=== PATIENT | male | born 1990 | race Hispanic/Latino ===

== ENCOUNTER 2017-07-19 11:03 | Emergency (ER) | payer OTHER ==
[~2017-07-19] VITALS: Ht 182.9 cm; Wt 108.0 kg
[~2017-07-19 11:03] MED LIST: COLACE100 MG PO; ENDOCET 5-3251 EACH PO; PROTEIN NUTRIT414 ML PO
[2017-07-19 12:02] LABS: HEMATOCRIT 44.6 % (38.0-50.0); MCHC 33.2 G/DL (30.0-36.0); MCV 81.4 FL (86-99); MEAN PLAT.VOLUME 10.5 uM^3 (9.0-12.4); PLATELET COUNT 225 K/uL (156-360); RBC DIS.WIDTH-CV 12.3 % (11.8-14.6); RBC DIS.WIDTH-SD 36.5 % (39-53); RED BLOOD COUNT 5.48 M/uL (4.00-5.50); WHITE BLOOD COUNT 9.1 K/uL (4.1-10.2)
[2017-07-19 12:10] LABS: CHLORIDE 105 mEq/L (99-109); POTASSIUM 3.8 mEq/L (3.7-5.4); SODIUM 137 mEq/L (136-147)
[2017-07-19 12:12] LABS: GLUCOSE 86 mg/dL (70-99)
[2017-07-19 12:13] LABS: ANION GAP 9 MEQ/L (2-14)
[2017-07-19 12:16] LABS: GFR ESTIMATE (CALCULATED) > 59 mL/min/
[2017-07-19 12:17] LABS: UREA NITROGEN (BUN) 15 mg/dL (9-23)
[2017-07-19 12:23] LABS: TROP-I INTERPRETATION NEGATIVE; TROPONIN-I < 0.01 ng/mL (0.0-0.30)
[2017-07-19 13:40] VITALS: BP 113/82
== END 2017-07-19 13:41 | disposition home or self-care (01) ==
LOC: EME 11:03
DX: R00.2 Palpitations (principal); R42 Dizziness and giddiness; R53.83 Other fatigue; R20.2 Paresthesia of skin; I45.10 Unspecified right bundle-branch block; Z73.3 Stress, not elsewhere classified
CPT/HCPCS: 71020; 80048; 84484; 85027; 93005; 99281; 99284